=== PATIENT | male | born 1940 | race Two or more races ===

== ENCOUNTER 2019-03-17 15:06 | Emergency (ER) | payer OTHER ==
[~2019-03-17] VITALS: Ht 180.3 cm; Wt 72.6 kg
[2019-03-17] MEDS ORDERED: FORTAMET500 MG (15:17)
[2019-03-17] MEDS ORDERED: NAMENDA1 EACH (15:18)
[2019-03-17] MEDS ORDERED: PROSCAR5 MG (15:18)
[2019-03-17] MEDS ORDERED: ARICEPT10 MG (15:18)
[2019-03-17] MEDS ORDERED: TAMS0.4C (15:18)
[2019-03-17] MEDS ORDERED: COZAAR100 MG (15:18)
[2019-03-17] MEDS ORDERED: SIMVASTATIN80 MG (15:18)
[2019-03-17] MEDS ORDERED: OXYBUTYNIN CHLO15 MG (15:19)
== END 2019-03-17 19:27 | disposition home or self-care (01) ==
LOC: ER 15:06
DX: J06.9 Acute upper respiratory infection, unspecified (principal)